=== PATIENT | female | born 1985 | race Caucasian/White ===

== ENCOUNTER → 2021-01-25 | Outpatient (CLI) | payer BC ==
[~2021-01-25] MED LIST: IBUPROFEN600 MG PO
== END ==
LOC: EXRD 12:51
DX: M79.89 Other specified soft tissue disorders (principal); I82.611 Acute embolism and thrombosis of superficial veins of right upper extremity
CPT/HCPCS: 93971

== ENCOUNTER → 2021-02-18 | Outpatient (CLI) | payer BC | LOC: KOH-I 08:30 | DX: M79.89 Other specified soft tissue disorders (principal); I82.611 Acute embolism and thrombosis of superficial veins of right upper extremity | CPT/HCPCS: 93971 ==